=== PATIENT | female | born 1990 | race Caucasian/White ===

== ENCOUNTER 2021-10-25 16:58 | Emergency (ER) | payer OTHER ==
[2021-10-25] MEDS ORDERED: Orphenadrine 60 MG/2 ML Inj IM STA (17:37)
[2021-10-25] MEDS ORDERED: Ketorolac 30 MG/ML SDV IM ONE (17:37)
[2021-10-25] MEDS ORDERED: Take Home: Cyclobenzaprine 10 MG Tab, 4 Tab Pack PO ONE (18:18)
[2021-10-25 18:27] VITALS: BP 129/69; PULSE 94
== END 2021-10-25 19:07 | disposition home or self-care (01) ==
LOC: VM.ED 16:58
DX: M62.830 Muscle spasm of back (principal)
CPT/HCPCS: 96372; 99283; A9270-GY; J2360; J3360